=== PATIENT | female | born 1985 | race Caucasian/White ===

== ENCOUNTER 2018-02-20 11:36 | Emergency (ER) | payer OTHER ==
[~2018-02-20] VITALS: Ht 167.6 cm; Wt 99.8 kg
[2018-02-20] MEDS ORDERED: CLARINEX5 MG PO (11:46)
[2018-02-20] MEDS ORDERED: TRAZODONE HCL50 MG PO (11:47)
[2018-02-20] MEDS ORDERED: WELLBUTRIN XL150 MG PO (11:47)
[2018-02-20] MEDS ORDERED: PAXIL20 MG PO (11:47)
[2018-02-20] MEDS ORDERED: OMEPRAZOLE20 M1 PO (11:47)
[2018-02-20] MEDS ORDERED: HYDROXYZINE PA100 MG PO (11:48)
[2018-02-20] MEDS ORDERED: MINIPRESS1 MG PO (11:48)
[2018-02-20] MEDS ORDERED: PROAIR HFA8.5 GM INH (12:22)
[2018-04-25] MEDS ORDERED: CIPRO500 MG PO (11:48)
[2018-04-25] MEDS ORDERED: IBUPROFEN600 MG PO (11:48)
== END 2018-02-20 12:34 | disposition home or self-care (01) ==
LOC: ED 11:36
DX: J06.9 Acute upper respiratory infection, unspecified (principal); J45.909 Unspecified asthma, uncomplicated; K21.9 Gastro-esophageal reflux disease without esophagitis; F32.9 Major depressive disorder, single episode, unspecified; F41.9 Anxiety disorder, unspecified; F17.200 Nicotine dependence, unspecified, uncomplicated; Z88.0 Allergy status to penicillin; Z88.8 Allergy status to other drugs, medicaments and biological substances; Z88.1 Allergy status to other antibiotic agents; Z79.899 Other long term (current) drug therapy
CPT/HCPCS: 99283

== ENCOUNTER 2018-03-20 14:02 | Emergency (ER) | payer OTHER ==
[~2018-03-20] VITALS: Ht 167.6 cm; Wt 99.8 kg
[~2018-03-20 14:02] MED LIST: CLARINEX5 MG PO; HYDROXYZINE PA100 MG PO; MINIPRESS1 MG PO; OMEPRAZOLE20 M1 PO; PAXIL20 MG PO; PROAIR HFA8.5 GM INH; TRAZODONE HCL50 MG PO; WELLBUTRIN XL150 MG PO
[2018-03-20] MEDS ORDERED: FIORINAL 50-321 EACH PO (14:54)
[2018-03-20] MEDS ORDERED: ZOFRAN ODT4 MG PO (14:54)
[2018-04-25] MEDS ORDERED: CIPRO500 MG PO (11:48)
[2018-04-25] MEDS ORDERED: IBUPROFEN600 MG PO (11:48)
== END 2018-03-20 15:44 | disposition home or self-care (01) ==
LOC: ED 14:02
DX: G43.909 Migraine, unspecified, not intractable, without status migrainosus (principal); K21.9 Gastro-esophageal reflux disease without esophagitis; F17.200 Nicotine dependence, unspecified, uncomplicated; Z88.0 Allergy status to penicillin; Z88.8 Allergy status to other drugs, medicaments and biological substances; Z88.1 Allergy status to other antibiotic agents; Z79.899 Other long term (current) drug therapy
CPT/HCPCS: 99283

== ENCOUNTER 2019-03-03 11:10 | Emergency (ER) | payer OTHER ==
[~2019-03-03] VITALS: Ht 167.6 cm; Wt 99.8 kg
[~2019-03-03 11:10] MED LIST changes: +CIPRO500 MG PO; +FIORINAL 50-321 EACH PO; +IBUPROFEN600 MG PO; +ZOFRAN ODT4 MG PO
--- OUTSIDE RECORDS SUMMARY | 2019-03-03 11:12 | XMS ---
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 Primary Care [facility] PHONE: [phone] Guidelines Source: Susana Huntley Guidelines Date: 07/20/2018 Care Coordination: Currently engaged in mental health services in [place] [phone] E.D. VISIT COUNT (12 MO.) [address] [facility] TOTAL 4 NOTE: Visits indicate total known visits. ED/UCC VISIT TRACKING (12 MO.) 03/03/2019 11:10 [facility] [place] TYPE: Emergency COMPLAINT: - CHEST PAIN/SOB 08/28/2018 18:03 [facility] [place] TYPE: Emergency COMPLAINT: - BITE/BOIL ON L SIDE/RIBS DIAGNOSES: - Encounter for other general examination 04/25/2018 10:22 [facility] [place] TYPE: Emergency COMPLAINT: - LOW BACK PAIN,NON INJURY DIAGNOSES: - Allergy status to other drugs, medicaments and biological substances status - Urinary tract infection, site not specified - Allergy status to other antibiotic agents status - Allergy status to penicillin - Low back pain - 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 - Personal history of nicotine dependence 03/20/2018 14:03 [facility] [place] TYPE: Emergency COMPLAINT: - HEAD PAIN/NO INJURY DIAGNOSES: - Allergy status to penicillin - Nicotine dependence, unspecified, uncomplicated - Gastro-esophageal reflux disease without esophagitis - Allergy status to other antibiotic agents status - Allergy status to other drugs, medicaments and biological substances status - Other correction (current) drug therapy - Migraine, unspecified, not intractable, without status migrainosus - Headache INPATIENT VISIT TRACKING (12 MO.) No inpatient visits to display in this time frame [email or web address]
[2019-03-03] MEDS ORDERED: G TUSSIN AC LI473 ML PO (13:10)
--- NOTE | 2019-03-04 08:07 | EKG ---
[facility] [address] [place], [place] [address] Signed Sinus tachycardia Otherwise normal ECG No previous ECGs available Confirmed by SOLITARIO ALLEN MD ([id number]) on 03/04/2019 8:07:12 AM Electronically Signed By: SOLITARIO ALLEN MD 03/04/19 0807 PATIENT NAME: SYLVIE RAMIREZ Electrocardiogram DATE OF : 89 PHYSICIAN: SOLITARIO ALLEN MD REPORT #: [id number] REPORT IS CONFIDENTIAL AND NOT TO BE RELEASED WITHOUT AUTHORIZATION
== END 2019-03-03 13:26 | disposition home or self-care (01) ==
LOC: ED 11:10
DX: J06.9 Acute upper respiratory infection, unspecified (principal); R07.89 Other chest pain; J45.909 Unspecified asthma, uncomplicated; F17.200 Nicotine dependence, unspecified, uncomplicated; K21.9 Gastro-esophageal reflux disease without esophagitis; F41.9 Anxiety disorder, unspecified; F32.9 Major depressive disorder, single episode, unspecified; Z90.49 Acquired absence of other specified parts of digestive tract; Z88.0 Allergy status to penicillin; Z88.8 Allergy status to other drugs, medicaments and biological substances; Z88.1 Allergy status to other antibiotic agents; Z79.899 Other long term (current) drug therapy
CPT/HCPCS: 71045; 80053; 84484; 85025; 85379; 93005; 93010; 99285-25

== ENCOUNTER 2020-08-27 08:41 | Emergency (ER) | payer OTHER ==
[~2020-08-27] VITALS: Ht 167.6 cm; Wt 136.1 kg
--- OUTSIDE RECORDS SUMMARY | ~2020-08-27 | XMS | Encounter Summary ---
Demographics + + + | Address | [address] | | | [place] [address] | + + + | Home Phone | | + + + | Preferred Language | Unknown | + + + | Marital Status | Single | + + + | Faith Affiliation | CAT | + + + | Race | White | + + + | Ethnic Group | Not or | + + + Author + + + | Author | [facility] | + + + | Organization | [facility] | + + + | Address | Unknown | + + + | Phone | Unavailable | + + + Support + + +---------+ + | Name | Relationship | Address | Phone | + + +---------+ + | Otilia & Edgar Ramirez | ECON | Unknown | | + + +---------+ + Care Team Providers + +------+ + | Care Industrial Relations Specialist Name | Role | Phone | + +------+ + PCP | Unavailable | + +------+ + Encounter Details +--------+ + + + + | Date | Type | Department | Care Team | Description | +--------+ + + + + | 11/11/ | ED Progress | [facility] | Report, Emergency | ED Progress Note | | 2006 | | MEDICINE | Services | | | | Note-Transc | | | | | | ribed | | | | +--------+ + + + + Social History + +-------+ +--------+------+ | Tobacco Use | Types | Packs/Day | Years | Date | | | | | Used | | + +-------+ +--------+------+ | Never Assessed | | | | | + +-------+ +--------+------+ + + + | Sex Assigned at | Date Recorded | | | | + + + | Not on file | | + + + documented as of this encounter ED Notes Interface, Sod[place] In - 11/24/2005 2:23 AM PST [id number] JAMES MERCER Date of Service: 11/11/2005 This is a 21-year-old female who has had a 3-day history of right-sided pelvic pain. She has had no vaginal pain. She denies any discharge. She denies any urinary symptoms, denies any back pain or abdominal pain. Also denies any nausea, vomiting or diarrhea. She denies fever. She has had normal appetite. Her last menstrual period was October 27, 2005. She had had previous biopsies showing HPV genital warts. She has had a previous and miscarriage. Review of Systems: All other systems reviewed and found to be negative except as described above. Past Medical History: Significant for bipolar disorder. Medications: Celexa. Allergies: She has no known drug allergies. Social History: She denies tobacco, alcohol, or drugs. Family History: Noncontributory. Physical Examination: Vital Signs: Her temperature was 36.4, pulse 86, blood pressure is 136/70, respirations 20, pulse oximetry 100% on room air. General: This is a nontoxic female resting on the exam table. HEENT: Her head is nontraumatic. Her pupils are equal, round, and reactive to light and accommodation bilaterally. Her oropharynx is clear. Neck: Supple. Heart: Regular rate and rhythm without gallop. Lungs: Clear to auscultation. No wheezes, crackles, or rhonchi. Abdomen: Soft and nontender without rebound or guarding. Pelvic: She has normal-appearing external genitalia. Normal-appearing vaginal vault. Her cervix appears normal. GC and Chlamydia cultures were obtained. She has no cervical motion tenderness, no uterine tenderness but there is just a right adnexal tenderness. Extremities: Warm and well perfused without edema. Neurologic: She is awake, alert, and oriented x3. Answers questions appropriately. She moves all extremities equally. Exam is otherwise nonfocal. ED Course: The patient arrived by private transportation. She was triaged to the Acute Side of the Emergency Department. Nurses' notes and vital signs were reviewed. She was cared for by myself and Dr. Renetta Valdez, who was present for all aspects of care.of this female. I felt that her etiology is most likely secondary to pelvic pathology. Urine test was normal. She had a UA which showed no evidence of infection or bleeding. GC and Chlamydia cultures were sent and are pending. She had a white blood cell count that was 12.0 with a normal differential. Her hematocrit was 37, and platelets were 354. She had normal basic metabolic panel. We did a pelvic ultrasound which showed a 4-cm right-sided ovarian cyst. There was no evidence of torsion. Otherwise, a normal study. I felt that the cyst in her ultrasound was likely the etiology of her pain. There was no other abnormalities seen. She had an otherwise reassuring exam. Normal vital signs and normal laboratory data. I felt comfortable on discharging her home. She understood the warning signs when she is to return immediately and she was discharged home. Clinical Impression: Ovarian cyst. Plan: Discharge home. I recommend ibuprofen 600 mg t.i.d. She was given Vicodin 16 tablets. She will follow up with her PCP in 3 to 5 days. Peter Lopez M.D. Renetta Valdez M.D. [place] / [id number] / [id number] / [id number] / Electronically signed by Renetta Valdez 11-23-2005 01:46:27 PM documented i n this encounter Plan of Treatment Not on filedocumented as of this encounter Visit Diagnoses Not on filedocumented in this encounter"
--- OUTSIDE RECORDS SUMMARY | ~2020-08-27 | XMS | Encounter Summary ---
Demographics + + + | Address | [address] | | | [place] [address] | + + + | Home Phone | | + + + | Preferred Language | Unknown | + + + | Marital Status | Single | + + + | Hoahaoism Affiliation | CAT | + + + | Race | White | + + + | Ethnic Group | Not or | + + + Author + + + | Author | [facility] | + + + | Organization | [facility] | + + + | Address | Unknown | + + + | Phone | Unavailable | + + + Support + + +---------+ + | Name | Relationship | Address | Phone | + + +---------+ + | Otilia & Edgar Ramirez | ECON | Unknown | | + + +---------+ + Care Team Providers + +------+ + | Care Certified Court/Medical Interpreter Name | Role | Phone | + +------+ + | Dacia Regalado | PCP | Unavailable | + +------+ + Encounter Details +--------+ + + + + | Date | Type | Department | Care Team | Description | +--------+ + + + + | 11/11/ | Hospital | Registration [id number] | Renetta Patel, | | | 2005 | Activity | [address] | [address] | | | | | Sanjay Mailcode: [id number] | [address] | | | | | [place], [place] | [place] [address] | | | | | [id number] | | | | | | [phone] | | | +--------+ + + + [...] + + documented as of this encounter Plan of Treatment + +---------+--------+ + + | Name | Type | Priori | Associated Diagnoses | Date/Time | | | | ty | | | + +---------+--------+ + + | US PELVIS COMPLETE | Imaging | Urgent | | 11/11/2005 9:46 PM | | | | | | PST | + +---------+--------+ + + documented as of this encounter Procedures + +--------+ + + + | Procedure Name | Priori | Date/Time | Associated Diagnosis | Comments | | | ty | | | | + +--------+ + + + | GC/CHLAMYDIA PROBE, | Urgent | 11/12/2005 | | Results for this | | DNA | | 12:27 AM | | procedure are in the | | | | PST | | results section. | + +--------+ + + + | US PELVIS AND | Urgent | 11/11/2005 | | Results for this | | TRANSVAGINAL | | 10:08 PM | | procedure are in the | | | | PST | | results section. | + +--------+ + + + | DIFFERENTIAL | Urgent | 11/11/2005 | | Results for this | | | | 9:53 PM | | procedure are in the | | | | PST | | results section. | + +--------+ + + + | CBC, WITH | Urgent | 11/11/2005 | | Results for this | | DIFFERENTIAL | | 9:53 PM | | procedure are in the | | | | PST | | results section. | + +--------+ + + + | BASIC METABOLIC SET | Urgent | 11/11/2005 | | Results for this | | (NA, K, CL, TCO2, | | 9:53 PM | | procedure are in the | | BUN, CR, GLU, CA) | | PST | | results section. | + +--------+ + + + documented in this encounter Results DNA PROBE, GC/CHLAM (11/12/2005 12:27 AM PST) + + + + + + | Component | Value | Ref Range | Performed | Pathologist | | | | | At | Signature | + + + + + + | CHLAMYDIA | Negative | | | | | PROBE | | | | | + + + + + + | GONOCOCCUS | Negative | | | | | PROBE | | | | | + + + + + + | SOURCE BODY | Genital | | | | | SITE | | | | | + + + + + + + + | Specimen | + + | | + + + + + | Narrative | Performed At | + + + | The methodology is Nucleic Acid Amplification Testing (NAAT) | | | using the [employer] Combo 2 assay, a non-culture assay. | | | Test performed by [facility]. | | + + + + + + + + | Performing | Address | City/State/Zipcode | Phone Number | | Organization | | | | + + + + + | [facility] | [address] | [place] [address] | | | LAB-MICRO | | | | + + + + + US PELVIS AND TRANSVAGINAL (11/11/2005 10:08 PM PST) + + + + + + | Component | Value | Ref Range | Performed | Pathologist | | | | | At | Signature | + + + + + + | US PELVIS | Radiologist 1: MICHAEL, | | | | | AND | Jackie GOREPelvis | | | | | TRANSVAGINA | Ultrasound Clinical | | | | | L | Indication:Right pelvic | | | | | | pain. | | | | | | FINDINGS:Transabdominal | | | | | | and transvaginal | | | | | | ultrasound of the pelvis | | | | | | isperformed. | | | | | | Transvaginal exam is | | | | | | performed in order to | | | | | | bettervisualize the | | | | | | uterus and adnexal | | | | | | structures. The uterus | | | | | | is anteriorly positioned | | | | | | and measures 7.9 x 3.2 | | | | | | x 5.2cm. The | | | | | | endometrial stripe | | | | | | measures 7 mm. No | | | | | | focal endometrialor | | | | | | myometrial abnormalities | | | | | | are seen. There is no | | | | | | pelvic fluid. The right | | | | | | ovary measures 6.3 x | | | | | | 4.6 x 3.2 cm and | | | | | | contains athin-walled, | | | | | | anechoic 3.8 x 3.1 x 4.4 | | | | | | cm cyst. The left | | | | | | ovarycannot be | | | | | | visualized. Ovarian | | | | | | Doppler: The right ovary | | | | | | demonstrates normal | | | | | | lowresistance arterial | | | | | | waveform. Again, the | | | | | | left ovary is | | | | | | notvisualized. | | | | | | IMPRESSION:1. 4.4 cm | | | | | | anechoic, thin-walled | | | | | | right ovarian cyst. No | | | | | | rightovarian torsion. | | | | | | Given the size of the | | | | | | cyst, follow up | | | | | | ultrasoundis recommended | | | | | | in 6 to 8 weeks. If | | | | | | the cyst is unchanged in | | | | | | sizeor larger, than | | | | | | excision should be | | | | | | considered, given the | | | | | | risk oftorsion. 2. | | | | | | Nonvisualized left | | | | | | ovary. Results were | | | | | | discussed with | | | | | | market. Addendum # 1 by | | | | | | Marycruz Baez M.D. on | | | | | | 15-Nov-2005 16:28 There | | | | | | is no change to this | | | | | | report. The addendum | | | | | | is toadministratively | | | | | | link the associated | | | | | | examinations to one | | | | | | report. | | | | + + + + + + + + | Specimen | + + | | + + + +---------+ + + | Performing | Address | City/State/Zipcode | Phone Number | | Organization | | | | + +---------+ + + | [facility] DEPARTMENT OF | | | | | RADIOLOGY | | | | + +---------+ + + BASIC METABOLIC SET (11/11/2005 9:53 PM PST) + +---------+ + + + | Component | Value | Ref Range | Performed | Pathologist | | | | | At | Signature | + +---------+ + + + | GLUCOSE, | 101 | 65 - 110 mg/dL | [facility] | | | PLASMA | | | DEPARTMENT | | | (LAB) | | | OF | | | | | | PATHOLOGY | | + +---------+ + + + | BUN, PLASMA | 3 (L) | 6 - 20 mg/dL | [facility] | | | (LAB) | | | DEPARTMENT | | | | | | OF | | | | | | PATHOLOGY | | + +---------+ + + + | CREATININE | 0.7 | 0.6 - 1.1 mg/dL | [facility] | | | PLASMA | | | DEPARTMENT | | | (LAB) | | | OF | | | | | | PATHOLOGY | | + +---------+ + + + | SODIUM, | 141 | 136 - 145 | [facility] | | | PLASMA | | mmol/L | DEPARTMENT | | | (LAB) | | | OF | | | | | | PATHOLOGY | | + +---------+ + + + | POTASSIUM, | 3.8 | 3.5 - 5.1 | [facility] | | | PLASMA | | mmol/L | DEPARTMENT | | | (LAB) | | | OF | | | | | | PATHOLOGY | | + +---------+ + + + | CHLORIDE, | 108 (H) | 98 - 107 mmol/L | [facility] | | | PLASMA | | | DEPARTMENT | | | (LAB) | | | OF | | | | | | PATHOLOGY | | + +---------+ + + + | TOTAL CO2, | 25 | 23 - 29 mmol/L | [facility] | | | PLASMA | | | DEPARTMENT | | | (LAB) | | | OF | | | | | | PATHOLOGY | | + +---------+ + + + | CALCIUM, | 9.2 | 8.5 - 10.5 | [facility] | | | PLASMA | | mg/dL | DEPARTMENT | | | (LAB) | | | OF | | | | | | PATHOLOGY | | + +---------+ + + + + + | Specimen | + + | | + + + + + + + | Performing | Address | City/State/Zipcode | Phone Number | | Organization | | | | + + + + + | [facility] DEPARTMENT OF | [address] | [place] [address] | | | PATHOLOGY | [address] | | | + + + + + | [facility] DEPARTMENT OF | [address] | [place] [address] | | | PATHOLOGY | [address] | | | + + + + + DIFFERENTIAL (11/11/2005 9:53 PM PST) + +---------+ + + + | Component | Value | Ref Range | Performed | Pathologist | | | | | At | Signature | + +---------+ + + + | NEUTROPHIL | 64 | 50 - 70 % | [facility] | | | % | | | DEPARTMENT | | | | | | OF | | | | | | PATHOLOGY | | + +---------+ + + + | LYMPHOCYTE | 26 | 18 - 42 % | [facility] | | | % | | | DEPARTMENT | | | | | | OF | | | | | | PATHOLOGY | | + +---------+ + + + | MONOCYTE % | 7 | 2 - 8 % | [facility] | | | | | | DEPARTMENT | | | | | | OF | | | | | | PATHOLOGY | | + +---------+ + + + | EOS % | 3 | 1 - 3 % | [facility] | | | | | | DEPARTMENT | | | | | | OF | | | | | | PATHOLOGY | | + +---------+ + + + | BASO % | 0 | <3 % | [facility] | | | | | | DEPARTMENT | | | | | | OF | | | | | | PATHOLOGY | | + +---------+ + + + | NEUTROPHIL | 7.7 | 1.8 - 7.7 K/cu | [facility] | | | # | | mm | DEPARTMENT | | | | | | OF | | | | | | PATHOLOGY | | + +---------+ + + + | LYMPHOCYTE | 3.1 | 1.0 - 4.8 K/cu | [facility] | | | # | | mm | DEPARTMENT | | | | | | OF | | | | | | PATHOLOGY | | + +---------+ + + + | MONOCYTE # | 0.8 (H) | 0.1 - 0.6 K/cu | [facility] | | | | | mm | DEPARTMENT | | | | | | OF | | | | | | PATHOLOGY | | + +---------+ + + + | EOS # | 0.4 | <0.6 K/cu mm | [facility] | | | | | | DEPARTMENT | | | | | | OF | | | | | | PATHOLOGY | | + +---------+ + + + | BASO # | 0.0 | <0.3 | [facility] | | | | | | DEPARTMENT | | | | | | OF | | | | | | PATHOLOGY | | + +---------+ + + + + + | Specimen | + + | | + + + + + + + | Performing | Address | City/State/Zipcode | Phone Number | | Organization | | | | + + + + + | [facility] DEPARTMENT OF | [address] | [place] [address] | | | PATHOLOGY | [address] | | | + + + + + | [facility] DEPARTMENT OF | [address] | [place] [address] | | | PATHOLOGY | [address] | | | + + + + + CBC, WITH DIFFERENTIAL (11/11/2005 9:53 PM PST) + + + + + + | Component | Value | Ref Range | Performed | Pathologist | | | | | At | Signature | + + + + + + | WHITE CELL | 12.0 (H) | 4.4 - 11.0 K/cu | [facility] | | | COUNT | | mm | DEPARTMENT | | | | | | OF | | | | | | PATHOLOGY | | + + + + + + | RED CELL | 4.36 | 4.00 - 5.20 | [facility] | | | COUNT | | M/cu mm | DEPARTMENT | | | | | | OF | | | | | | PATHOLOGY | | + + + + + + | HEMOGLOBIN | 13.0 | 12.0 - 16.0 | [facility] | | | | | g/dL | DEPARTMENT | | | | | | OF | | | | | | PATHOLOGY | | + + + + + + | HEMATOCRIT | 37.3 | 36.0 - 46.0 % | [facility] | | | | | | DEPARTMENT | | | | | | OF | | | | | | PATHOLOGY | | + + + + + + | MCV | 85.6 | 80.0 - 96.0 fL | [facility] | | | | | | DEPARTMENT | | | | | | OF | | | | | | PATHOLOGY | | + + + + + + | MCHC | 34.7 | 33.4 - 35.5 | [facility] | | | | | g/dL | DEPARTMENT | | | | | | OF | | | | | | PATHOLOGY | | + + + + + + | RDW | 12.2 | 11.5 - 15.0 % | [facility] | | | | | | DEPARTMENT | | | | | | OF | | | | | | PATHOLOGY | | + + + + + + | PLATELET | 360 | 150 - 400 K/cu | [facility] | | | COUNT | | mm | DEPARTMENT | | | | | | OF | | | | | | PATHOLOGY | | + + + + + + + + | Specimen | + + | | + + + + + + + | Performing | Address | City/State/Zipcode | Phone Number | | Organization | | | | + + + + + | [facility] | [address] | [place] [address] | | | PATHOLOGY | [address] | | | + + + + + | [facility] | [address] | [place] [address] | | | PATHOLOGY | [address] | | | + + + + + documented in this encounter Visit Diagnoses Not on filedocumented in this encounter"
--- OUTSIDE RECORDS SUMMARY | ~2020-08-27 | XMS | Encounter Summary ---
Demographics + + + | Address | [address] | | | [place] [address] | + + + | Home Phone | | + + + | Preferred Language | Unknown | + + + | Marital Status | Single | + + + | Christianity Affiliation | CAT | + + + | Race | White | + + + | Ethnic Group | Not or | + + + Author + + + | Author | [facility] | + + + | Organization | [facility] | + + + | Address | Unknown | + + + | Phone | Unavailable | + + + Support + + +---------+ + | Name | Relationship | Address | Phone | + + +---------+ + | Otilia & Edgar Ramirez | ECON | Unknown | | + + +---------+ + Care Team Providers + +------+ + | Care Blowing Engineer Name | Role | Phone | + +------+ + | Dacia Regalado | PCP | Unavailable | + +------+ + Encounter Details +--------+ + + + + | Date | Type | Department | Care Team | Description | +--------+ + + + + | 11/13/ | Hospital | Registration 3[address] | Mary Solorio, | | | 2005 | Activity | SANJAY Conti | MD Marcellus Martinez | | | | | Rd Mailcode: RPB07 | [facility] and | | | | | [place], [place] | Counseling [address] | | | | | [address] | [address], | | | | | [phone] | [place] [address] | | | | | | [phone] | | | | | | | | +--------+ + + [...] as of this encounter Plan of Treatment Not on filedocumented as of this encounter Procedures + +--------+ + + + | Procedure Name | Priori | Date/Time | Associated Diagnosis | Comments | | | ty | | | | + +--------+ + + + | CT PELVIS W IV | Urgent | 11/14/2005 | | Results for this | | CONTRAST | | 3:38 AM | | procedure are in the | | | | PST | | results section. | + +--------+ + + + | CT ABDOMEN W IV | Urgent | 11/14/2005 | | Results for this | | CONTRAST | | 3:38 AM | | procedure are in the | | | | PST | | results section. | + +--------+ + + + | COMPLETE METABOLIC | Routin | 11/13/2005 | | Results for this | | SET | e | 11:28 PM | | procedure are in the | | (NA,K,CL,CO2,BUN,CRE | | PST | | results section. | | AT,GLUC,CA,AST,ALT,B | | | | | | [place] TOTAL,ALK | | | | | | PHOS,ALB,PROT TOTAL) | | | | | + +--------+ + + + | CBC ONLY | Routin | 11/13/2005 | | Results for this | | | e | 11:28 PM | | procedure are in the | | | | PST | | results section. | + +--------+ + + + documented in this encounter Results CT PELVIS W CONTRAST (11/14/2005 3:38 AM PST) + + + + + + | Component | Value | Ref Range | Performed | Pathologist | | | | | At | Signature | + + + + + + | CT PELVIS W | Radiologist 1: VIJAY, | | | | | CONTRAST | MARNI Palacios M.D.EXAM: | | | | | | CT Scan of the | | | | | | Abdomen, and Pelvis | | | | | | COMPARISON: None. | | | | | | PROCEDURE: Following | | | | | | the uneventful | | | | | | administration of | | | | | | enteric andVisipaque 120 | | | | | | cc intravenous | | | | | | contrast, contiguous | | | | | | images areobtained from | | | | | | the lung bases through | | | | | | the pelvis. | | | | | | Reconstructionis done | | | | | | with an axial thickness | | | | | | of 5 mm and spacing of 5 | | | | | | mm.Additional axial | | | | | | reconstructions with a | | | | | | thickness of 3 mm | | | | | | andspacing of 1.5 mm are | | | | | | created. ABDOMEN | | | | | | FINDINGS (contrast | | | | | | enhanced): The | | | | | | visualized lung basesare | | | | | | clear. The liver, | | | | | | spleen, gallbladder, | | | | | | adrenal glands,kidneys, | | | | | | and pancreas are | | | | | | unremarkable. There is | | | | | | no significantfree air | | | | | | or free fluid. | | | | | | Abdominal aorta is | | | | | | normal in course | | | | | | andcaliber. PELVIS | | | | | | FINDINGS (contrast | | | | | | enhanced): Right | | | | | | ovarian cyst measures3.2 | | | | | | x 5.2 cm, but is better | | | | | | characterized on the | | | | | | recentultrasound. | | | | | | Appendix is not | | | | | | identified despite thin | | | | | | cuts andcoronal imaging. | | | | | | There is no pericecal | | | | | | inflammation or | | | | | | freefluid. A few | | | | | | non-enlarged mesenteric | | | | | | lymph nodes are presents | | | | | | inthis region which are | | | | | | probably not | | | | | | significant. Bladder | | | | | | ismoderately distended. | | | | | | Osseous structures are | | | | | | intact. IMPRESSION: 1. | | | | | | Normal appendix is not | | | | | | visualized, however | | | | | | there are nosecondary | | | | | | signs of appendicitis. | | | | | | 2. Right ovarian cyst. | | | | | | Better characterized | | | | | | on previousultrasound of | | | | | | the pelvis. This is | | | | | | concordant with the | | | | | | initial interpretation | | | | | | given by to the | | | | | | emergency room. | | | | + + + + + + + + | Specimen | + + | | + + + +---------+ + + | Performing | Address | City/State/Zipcode | Phone Number | | Organization | | | | + +---------+ + + | [facility] DEPARTMENT OF | | | | | RADIOLOGY | | | | + +---------+ + + CT ABDOMEN W CONTRAST (11/14/2005 3:38 AM PST) + + + + + + | Component | Value | Ref Range | Performed | Pathologist | | | | | At | Signature | + + + + + + | CT ABDOMEN | Radiologist 1: VIJAY, | | | | | W CONTRAST | MARNI Palacios M.D.EXAM: | | | | | | CT Scan of the | | | | | | Abdomen, and Pelvis | | | | | | COMPARISON: None. | | | | | | PROCEDURE: Following | | | | | | the uneventful | | | | | | administration of | | | | | | enteric andVisipaque 120 | | | | | | cc intravenous | | | | | | contrast, contiguous | | | | | | images areobtained from | | | | | | the lung bases through | | | | | | the pelvis. | | | | | | Reconstructionis done | | | | | | with an axial thickness | | | | | | of 5 mm and spacing of 5 | | | | | | mm.Additional axial | | | | | | reconstructions with a | | | | | | thickness of 3 mm | | | | | | andspacing of 1.5 mm are | | | | | | created. ABDOMEN | | | | | | FINDINGS (contrast | | | | | | enhanced): The | | | | | | visualized lung basesare | | | | | | clear. The liver, | | | | | | spleen, gallbladder, | | | | | | adrenal glands,kidneys, | | | | | | and pancreas are | | | | | | unremarkable. There is | | | | | | no significantfree air | | | | | | or free fluid. | | | | | | Abdominal aorta is | | | | | | normal in course | | | | | | andcaliber. PELVIS | | | | | | FINDINGS (contrast | | | | | | enhanced): Right | | | | | | ovarian cyst measures3.2 | | | | | | x 5.2 cm, but is better | | | | | | characterized on the | | | | | | recentultrasound. | | | | | | Appendix is not | | | | | | identified despite thin | | | | | | cuts andcoronal imaging. | | | | | | There is no pericecal | | | | | | inflammation or | | | | | | freefluid. A few | | | | | | non-enlarged mesenteric | | | | | | lymph nodes are presents | | | | | | inthis region which are | | | | | | probably not | | | | | | significant. Bladder | | | | | | ismoderately distended. | | | | | | Osseous structures are | | | | | | intact. IMPRESSION: 1. | | | | | | Normal appendix is not | | | | | | visualized, however | | | | | | there are nosecondary | | | | | | signs of appendicitis. | | | | | | 2. Right ovarian cyst. | | | | | | Better characterized | | | | | | on previousultrasound of | | | | | | the pelvis. This is | | | | | | concordant with the | | | | | | initial interpretation | | | | | | given by to the | | | | | | emergency room. | | | | + + + + + + + + | Specimen | + + | | + + + +---------+ + + | Performing | Address | City/State/Zipcode | Phone Number | | Organization | | | | + +---------+ + + | [facility] DEPARTMENT OF | | | | | RADIOLOGY | | | | + +---------+ + + CBC ONLY WITH PLATELET (11/13/2005 11:28 PM PST) + + + + + + | Component | Value | Ref Range | Performed | Pathologist | | | | | At | Signature | + + + + + + | WHITE CELL | 9.0 | 4.4 - 11.0 K/cu | [facility] | | | COUNT | | mm | DEPARTMENT | | | | | | OF | | | | | | PATHOLOGY | | + + + + + + | RED CELL | 4.03 | 4.00 - 5.20 | [facility] | | | COUNT | | M/cu mm | DEPARTMENT | | | | | | OF | | | | | | PATHOLOGY | | + + + + + + | HEMOGLOBIN | 12.0 | 12.0 - 16.0 | [facility] | | | | | g/dL | DEPARTMENT | | | | | | OF | | | | | | PATHOLOGY | | + + + + + + | HEMATOCRIT | 34.4 (L) | 36.0 - 46.0 % | [facility] | | | | | | DEPARTMENT | | | | | | OF | | | | | | PATHOLOGY | | + + + + + + | MCV | 85.2 | 80.0 - 96.0 fL | [facility] | | | | | | DEPARTMENT | | | | | | OF | | | | | | PATHOLOGY | | + + + + + + | MCHC | 35.0 | 33.4 - 35.5 | [facility] | | | | | g/dL | DEPARTMENT | | | | | | OF | | | | | | PATHOLOGY | | + + + + + + | RDW | 12.0 | 11.5 - 15.0 % | [facility] | | | | | | DEPARTMENT | | | | | | OF | | | | | | PATHOLOGY | | + + + + + + | PLATELET | 330 | 150 - 400 K/cu | [facility] [...] | + + + + + | [facility] DEPARTMENT OF | [address] | [place] [address] | | | PATHOLOGY | [address] | | | + + + + + | [facility] DEPARTMENT OF | [address] | [place] [address] | | | PATHOLOGY | [address] | | | + + + + + COMP METABOLIC SET (11/13/2005 11:28 PM PST) + +---------+ + + + | Component | Value | Ref Range | Performed | Pathologist | | | | | At | Signature | + +---------+ + + + | GLUCOSE, | 93 | 65 - 110 mg/dL | [facility] | | | PLASMA | | | DEPARTMENT | | | (LAB) | | | OF | | | | | | PATHOLOGY | | + +---------+ + + + | BUN, PLASMA | 5 (L) | 6 - 20 mg/dL | [facility] | | | (LAB) | | | DEPARTMENT | | | | | | OF | | | | | | PATHOLOGY | | + +---------+ + + + | CREATININE | 0.6 | 0.6 - 1.1 mg/dL | [facility] | | | PLASMA | | | DEPARTMENT | | | (LAB) | | | OF | | | | | | PATHOLOGY | | + +---------+ + + + | TOTAL | 5.8 (L) | 6.1 - 7.9 g/dL | [facility] | | | PROTEIN, | | | DEPARTMENT | | | PLASMA | | | OF | | | (LAB) | | | PATHOLOGY | | + +---------+ + + + | ALBUMIN, | 3.1 (L) | 3.5 - 4.7 g/dL | [facility] | | | PLASMA | [...] | + +---------+ + + + | BILIRUBIN | 0.4 | 0.3 - 1.2 mg/dL | [facility] | | | TOTAL | | | DEPARTMENT | | | | | | OF | | | | | | PATHOLOGY | | + +---------+ + + + | ALK PHOS | 60 | 42 - 110 U/L | [facility] | | | | | | DEPARTMENT | | | | | | OF | | | | | | PATHOLOGY | | + +---------+ + + + | AST(SGOT) | 14 (L) | 15 - 41 U/L | [facility] | | | | | | DEPARTMENT | | | | | | OF | | | | | | PATHOLOGY | | + +---------+ + + + | SODIUM, | 138 | 136 - 145 | [facility] | | | PLASMA | | mmol/L | DEPARTMENT | | | (LAB) | | | OF | | | | | | PATHOLOGY | | + +---------+ + + + | POTASSIUM, | 3.7 | 3.5 - 5.1 | [facility] | | | PLASMA | | mmol/L | DEPARTMENT | | | (LAB) | | | OF | | | | | | PATHOLOGY | | + +---------+ + + + | CHLORIDE, | 104 | 98 - 107 mmol/L | [facility] [...] | + +---------+ + + + | ALT (SGPT) | 14 | 13 - 48 U/L | [facility] | | | | | [...] | + + + + + | [facility] DEPARTMENT OF | [address] | [place] [address] | | | PATHOLOGY | [address] | | | + + + + + | [facility] DEPARTMENT OF | [address] | [place] [address] | | | PATHOLOGY | [address] | | | + + + + + documented in this encounter Visit Diagnoses Not on filedocumented in this encounter"
--- OUTSIDE RECORDS SUMMARY | ~2020-08-27 | XMS | Clinical Summary ---
Demographics + + + | Address | [address] | | | [place] [address] | + + + | Home Phone | | + + + | Preferred Language | Unknown | + + + | Marital Status | Unknown | + + + | Taoism Affiliation | Unknown | + + + | Race | Unknown | + + + | Ethnic Group | Unknown | + + + Author + + + | Author | [facility] | | | and Abhi | + + + | Organization | [facility] | | | and [place] | + + + | Address | Unknown | + + + | Phone | Unavailable | + + + Care Team Providers + +------+ + | Care Lathe Mechanic Name | Role | Phone | + +------+ + PCP | Unavailable | + +------+ + Allergies Not on File Medications Not on file Active Problems Not on file Social History + +-------+ +--------+------+ | Tobacco [...] on file | | + + + Last Filed Vital Signs Not on file Plan of Treatment + + +-------+ + | Health Maintenance | Due Date | Last | Comments | | | | Done | | + + +-------+ + | Vaccine: | 08//200 | | | | Dtap/Tdap/Td (1 - | 6 | | | | Tdap) | | | | + + +-------+ + | Cervical Cancer | | | | | Screening (Pap) | 7 | | | + + +-------+ + | Vaccine: Influenza | | | | | (#1) | 0 | | | + + +-------+ + Results Not on filefrom Last 3 Months"
--- OUTSIDE RECORDS SUMMARY | ~2020-08-27 | XMS | Clinical Summary ---
Demographics + + + | Address | [address] | | | [place] [address] | + + + | Home Phone | | + + + | Preferred Language | Unknown | + + + | Marital Status | Single | + + + | Nondenominational Affiliation | CAT | + + + | Race | White | + + + | Ethnic Group | Not or | + + + Author + + + | Author | [facility] | + + + | Organization | [facility] | + + + | Address | Unknown | + + + | Phone | Unavailable | + + + Support + + +---------+ + | Name | Relationship | Address | Phone | + + +---------+ + | Otilia & Edgar Ramirez | ECON | Unknown | | + + +---------+ + Care Team Providers + +------+ + | Care Flitch Hanger Name | Role | Phone | + +------+ + PCP | Unavailable | + +------+ + Source Comments THAIS is fully live on both [facility] Amb[facility] and [facility] InPatient.[facility] Allergies + + + + + + | Active Allergy | Reactions | Severity | Noted | Comments | | | | | Date | | + + + + + + | Clarithromycin | | | 05/01/20 | | | | | | 07 | | + + + + + + Medications + + + +---------+------+------+-------+ | Medication | Sig | Dispensed | Refills | Star | End | Statu | | | | | | t | Date | s | | | | | | Date | | | + + + +---------+------+------+-------+ | LITHIUM CARBONATE | 675 mg bid | | 0 | | | Activ | | OR | | | | | | e | + + + +---------+------+------+-------+ | CELEXA OR | 30mg once a day | | 0 | | | Activ | | | | | | | | e | + + + +---------+------+------+-------+ | ORTHO-CYCLEN (28) | once a day | | 0 | | | Activ | | OR | | | | | | e | + + + +---------+------+------+-------+ | Lorazepam (ATIVAN) | 1 tab prn | | 0 | | | Activ | | 0.5 mg Oral Tablet | | | | | | e | + + + +---------+------+------+-------+ Active Problems + + + | Problem | Noted Date | + + + | High risk social situation | 04/19/2017 | + + + + + | Overview: Department of Human Services ([facility]) Child Welfare | | Alert received for this patient from [facility] Child | | Abuse Hotline. Reason for Alert: "has engaged in | | substance use/abuse that threatens the health of her | | ",Estimated Date of Delivery: UnknownSW needs to notify | | [facility] ([phone]) when baby is delivered. Steve Causey, Medical | | Social WorkerPager [phone] | | | | needs to notify [facility] ([phone]) when baby is delivered. | | | |Steve Causey, [employer]afer | |Pager [phone] | + + Social History + +-------+ +--------+------+ [...] + + + Last Filed Vital Signs + + + + + | Vital Sign | Reading | Time Taken | Comments | + + + + + | Blood Pressure | 142/75 | 05/01/2007 10:35 AM | | | | | PDT | | + + + + + | Pulse | 80 | 05/01/2007 10:35 AM | | | | | PDT | | + + + + + | Temperature | - | - | | + + + + + | Respiratory Rate | - | - | | + + + + + | Oxygen Saturation | - | - | | + + + + + | Inhaled Oxygen | - | - | | | Concentration | | | | + + + + + | Weight | 98 kg (216 lb) | 05/01/2007 10:35 AM | | | | | PDT | | + + + + + | Height | 165.1 cm (5' 5") | 05/01/2007 10:35 AM | | | | | PDT | | + + + + + | Body Mass Index | 35.94 | 05/01/2007 10:35 AM | | | | | PDT | | + + + + + Plan of Treatment + + +-------+ + | Health Maintenance | Due Date | Last | Comments | | | | Done | | + + +-------+ + | Influenza (Flu) | | | | | vaccination (#1) | 0 | | | + + +-------+ + | Pneumococcal | Aged Out | | No longer eligible based on patient's age | | vaccination | | | to complete this topic | + + +-------+ + Results Not on filefrom Last 3 Months Insurance + +--------+ +--------+ + +------+ | Payer | Benefi | Subscriber | Effect | Phone | Address | Type | | | t Plan | ID | [place] | | | | | | / | | Dates | | | | | | Group | | | | | | + +--------+ +--------+ + +------+ | [employer] | PACIFI | [id number] | Effect | [phone] | [address] | PPO | | | [place] | | [address] | [phone] | | | [address] | | for | | [place] | | | | | | all | | , [place] | | | | | | dates | | [address] | | + +--------+ +--------+ + +------+ + +--------+ +--------+ + + | Guarantor Name | Accoun | Relation to | Date | Phone | Billing Address | | | t Type | Patient | of | | | | | | | | | | + +--------+ +--------+ + + | JAMESSYLVIE | Person | Self | [birth year] | [address] | | | al/Fam | | 1985 | [phone] | [address] [place] | | | [place] | | | 1 (Home) | [address] | + +--------+ +--------+ + + Advance Directives + + + + + | Type | Date Recorded | Patient | Explanation | | | | Director Of Acquisitions | | + + + + + | Advance | | | | | Directives and | | | | | Living Will | | | | + + + + + | Power of | | | | | Ditch Inspector | | | | + + + + +
--- OUTSIDE RECORDS SUMMARY | ~2020-08-27 | XMS | Encounter Summary ---
Demographics + + + | Address | [address] | | | [place] [address] | + + + | Home Phone | | + + + | Preferred Language | Unknown | + + + | Marital Status | Single | + + + | Buddhist Affiliation | CAT | + + + | Race | White | + + + | Ethnic Group | Not or | + + + Author + + + | Author | [facility] | + + + | Organization | [facility] | + + + | Address | Unknown | + + + | Phone | Unavailable | + + + Support + + +---------+ + | Name | Relationship | Address | Phone | + + +---------+ + | Otilia & Edgar Ramirez | ECON | Unknown | | + + +---------+ + Care Team Providers + +------+ + | Care Pharmacovigilance Specialist Name | Role | Phone | + +------+ + PCP | Unavailable | + +------+ + Encounter Details +--------+ + + + + | Date | Type | Department | Care Team | Description | +--------+ + + + + | 11/11/ | Results | Emergency Medicine | [facility] | | | 2005 | Only | [address] | | | | | | [address] | | | | | | [place], [place] | | | | | | [address] | | | +--------+ + + + [...] + +--------+ + + + | US DOPPLER PELVIS | Routin | 11/11/2005 | | Results for this | | COMP | e | 10:08 PM | | procedure are in the | | | | PST | | results section. | + +--------+ + + + | US TRANSVAGINAL | Routin | 11/11/2005 | | Results for this | | | e | 10:08 PM | | procedure are in the | | | | PST | | results section. | + +--------+ + + + documented in this encounter Results US DOPPLER PELVIS COMP (11/11/2005 10:08 PM PST) + + + + + + | Component | Value | Ref Range | Performed | Pathologist | | | | | At | Signature | + + + + + + | US DOPPLER | Radiologist 1: MICHAEL, | | | | | PELVIS COMP | MARYCRUZ, M.D.Pelvis | | | | | | Ultrasound Clinical | | | | | | Indication:Right pelvic | | | | [...] with | | | | | | roseann. Addendum # 1 by | | | [...] | | + +---------+ + + | [facility]MENT OF | | | | | RADIOLOGY | | | | + +---------+ + + US TRANSVAGINAL (11/11/2005 10:08 PM PST) + + + + + + | Component | Value | Ref Range | Performed | Pathologist | | | | | At | Signature | + + + + + + | US | Radiologist 1: MICHAEL, | | | | | TRANSVAGINA | Jackie GOREPelvis | | | | | L | Ultrasound Clinical | | | | | | Indication:Right pelvic | | | | [...] | | + +---------+ + + | [facility] DEPARTMENT OF | | | | | RADIOLOGY | | | | + +---------+ + + documented in this encounter Visit Diagnoses Not on filedocumented in this encounter"
--- OUTSIDE RECORDS SUMMARY | ~2020-08-27 | XMS | Encounter Summary ---
Demographics + + + | Address | [address] | | | [place] [address] | + + + | Home Phone | | + + + | Preferred Language | Unknown | + + + | Marital Status | Single | + + + | Jehovah'S Witness Affiliation | CAT | + + + | Race | White | + + + | Ethnic Group | Not or | + + + Author + + + | Author | [facility] | + + + | Organization | [facility] | + + + | Address | Unknown | + + + | Phone | Unavailable | + + + Support + + +---------+ + | Name | Relationship | Address | Phone | + + +---------+ + | Otilia & Edgar Ramirez | ECON | Unknown | | + + +---------+ + Care Team Providers + +------+ + | Care Manager Floor Name | Role | Phone | + +------+ + PCP | Unavailable | + +------+ + Encounter Details +--------+ + + + + | Date | Type | Department | Care Team | Description | +--------+ + + + + | 11/11/ | ED Progress | [facility] | Addendum, Ed | ED Progress Note | | 2006 | | MEDICINE | Teaching | | | | Note-Transc | | [...] as of this encounter ED Notes Interface, Lithographic Camera Operator In - 11/24/2005 2:23 AM PST [id number] JAMES SYLVIE Date of Service: 11/11/2005 I saw and examined this patient with the resident. I discussed the plan and agree with the plan. Please see Dr. Peter Lopez's dictation for full details. Briefly, the patient presents for trauma complaint and abdominal pain. She was told that she had an ovarian cyst, but she did not have any imaging. This was done at an outside hospital. She states the pain in her right abdomen is increasing. She does not have any bleeding. On our exam, she had a normal-appearing pelvic and some right adnexal tenderness. Her abdomen was soft and nontender with no pain over McBurney's point. In the Emergency Department, we felt that this could be consistent with torsion versus cyst; therefore, we obtained a pelvic ultrasound which did show a right-sided ovarian cyst which I think is the etiology of the patient's pain. The patient will be discharged to home with Vicodin, ibuprofen, close follow, and close instructions to return if she should have fevers or worsening pain, and please see Dr. Lopez's dictation for full details. Renetta Valdez M.D. FOZIA / NEDRA [id number] / [id number] / [id number] / Electronically signed by Renetta Valdez 11-23-2005 01:46:32 PM documented i n this encounter Plan of Treatment Not on filedocumented as of this encounter Visit Diagnoses Not on filedocumented in this encounter"
--- OUTSIDE RECORDS SUMMARY | ~2020-08-27 | XMS | Encounter Summary ---
Demographics + + + | Address | [address] | | | [place] [address] | + + + | Home Phone | | + + + | Preferred Language | Unknown | + + + | Marital Status | Unknown | + + + | Quaker Affiliation | Unknown | + + + | Race | Unknown | + + + | Ethnic Group | Unknown | + + + Author + + + | Author | [facility] | | | and [place] | + + + | Organization | [facility] | | | and [place] | + + + | Address | Unknown | + + + | Phone | Unavailable | + + + Care Team Providers + +------+ + | Care Car Lubricator Name | Role | Phone | + +------+ + PCP | Unavailable | + +------+ + Encounter Details +--------+ + + + + | Date | Type | Department | Care Team | Description | +--------+ + + + + | 05/26/ | Hospital | [facility] | | | | 2006 | Encounter | MED [facility] | | | | | | CONV DEPT [address] | | | | | | [place], | | | | | | [place] [address] | | | | | | [phone] | | | +--------+ + + + [...]
--- OUTSIDE RECORDS SUMMARY | ~2020-08-27 | XMS | Encounter Summary ---
Demographics + + + | Address | [address] | | | [place] [address] | + + + | Home Phone | | + + + | Preferred Language | Unknown | + + + | Marital Status | Unknown | + + + | Hindu Affiliation | Unknown | + + + | Race | Unknown | + + + | Ethnic Group | Unknown | + + + Author + + + | Author | [facility] | | | and [place] | + + + | Organization | [facility] | | | and [place] | + + + | Address | Unknown | + + + | Phone | Unavailable | + + + Care Team Providers + +------+ + | Care Pump Installation And Servicer Name | Role | Phone | + +------+ + PCP | Unavailable | + +------+ + Encounter Details +--------+ + + + + | Date | Type | Department | Care Team | Description | +--------+ + + + + | 01/13/ | Emergency | [facility] | Bj Sharma | Abdominal Pain, | | 2007 | | [facility] | MD Mehul [address] | Unspecified Site | | | | EMERGENCY CENTER | [address] | | | | | [address] | [place] [address] | | | | | | [phone] | | | | | [address] | | | | | | [phone] | | | +--------+ + + + [...] filedocumented as of this encounter Visit Diagnoses + + | Diagnosis | + + | Abdominal pain, unspecified site | + + documented in this encounter"
--- OUTSIDE RECORDS SUMMARY | ~2020-08-27 | XMS | Encounter Summary ---
Demographics + + + | Address | [address] | | | [place] [address] | + + + | Home Phone | | + + + | Preferred Language | Unknown | + + + | Marital Status | Single | + + + | Zoroastrianism Affiliation | CAT | + + + [...] Team Providers + +------+ + | Care Solar Sales Estimator Name | Role | Phone | + +------+ + | Dacia Regalado | PCP | Unavailable | + +------+ + Encounter Details +--------+ + + + + | Date | Type | Department | Care Team | Description | +--------+ + + + + | 08/03/ | Hospital | Registration [address] | Nate Perez, | | | 2006 | Activity | [facility] [address] | [address] | | | | | Sanjay Mailcode: [id number] | [address] | | | | | [place], [place] | [place], [place] | | | | | [address] | [address] | | | | | [phone] | [phone] | | | | | | | [...] | + +--------+ + + + | SURGICAL PATHOLOGY | Routin | 08/03/2007 | | Results for this | | | e | | | procedure are in the | | | | | | results section. | + +--------+ + + + documented in this encounter Results SURGICAL PATHOLOGY (08/03/2007) + + + + + + | Component | Value | Ref Range | Performed | Pathologist | | | | | At | Signature | + + + + + + | SURGICAL | SOURCE OF SPECIMEN:A | | [facility] | | | PATHOLOGY | Base of nasopharyngeal | | DEPARTMENT | | | | papilloma Final | | OF | | | | Pathologic | | PATHOLOGY | | | | Diagnosis:Base of | | | | | | nasopharyngeal | | | | | | papilloma, biopsy: - | | | | | | Respiratory mucosa with | | | | | | squamous metaplasia and | | | | | | patchy | | | | | | chronicinflammation | | | | | | - Negative for | | | | | | dysplasia Case reviewed | | | | | | by:Desirae Hairston, | | | | | | M.D./Surgical Pathology | | | | | | FellowBryan Argueta, | | | | | | M.D./PathologistT: | | | | | | 7:tyler I have reviewed | | | | | | all diagnostic slides | | | | | | and have edited the | | | | | | gross and/ormicroscopic | | | | | | portion of this report | | | | | | as part of my pathologic | | | | | | assessment andfinal | | | | | | diagnosis. Clinical | | | | | | History:The patient is a | | | | | | 22-year-old female with | | | | | | throat papilloma. Per | | | | | | LCR web:Patient with | | | | | | history of removal of | | | | | | nasal papilloma times 2 | | | | | | from thenasopharyngeal | | | | | | side of the soft palate. | | | | | | Gross Description:One | | | | | | specimen is received | | | | | | fresh in a container | | | | | | labeled with the patient | | | | | | name(initials MM) and | | | | | | "base of nasopharyngeal | | | | | | papilloma." Received | | | | | | is a 1.2 x1.0 x 0.5-cm | | | | | | irregular, rubbery, | | | | | | rodriguez-white tissue with | | | | | | moderate cautery.One | | | | | | aspect is hemorrhagic, | | | | | | glistening, pale | | | | | | pink-red. The area of | | | | | | cauteryis inked. The | | | | | | specimen is trisected | | | | | | and submitted in toto. | | | | | | Cassette Index:A1, one | | | | | | trisected | | | | | | tissueJK:NG:labRendering | | | | | | Diagnostician: Bryan | | | | | | Kendall | | | | | | Toro | | | | | | errol Signed 08/07/2007 | | | | + + + + + + + + | Specimen | + + | | + + + + + + + | Performing | Address | City/State/Zipcode | Phone Number | | Organization | | | | + + + + + | [facility] DEPARTMENT OF | [address] [place] [address] | [place] [address] | | | PATHOLOGY | [address] | | | + + + + + | [facility] DEPARTMENT OF | [address] [facility] | [place] [address] | | | PATHOLOGY | [address] | | | + + + + + documented in this encounter Visit Diagnoses Not on filedocumented in this encounter
--- OUTSIDE RECORDS SUMMARY | ~2020-08-27 | XMS | Encounter Summary ---
Demographics + + + | Address | [address] | | | [place] [address] | + + + | Home Phone | | + + + | Preferred Language | Unknown | + + + | Marital Status | Single | + + + | Buddhism Affiliation | CAT | + + + | Race | White | + + + | Ethnic Group | Not or | + + + Author + + + | Author | [facility] | + + + | Organization | [facility] | + + + | Address | Unknown | + + + | Phone | Unavailable | + + + Support + + +---------+ + | Name | Relationship | Address | Phone | + + +---------+ + | Otilia & Edgar Ramirez | ECON | Unknown | | + + +---------+ + Care Team Providers + +------+ + | Care Coordinating Producer Name | Role | Phone | + +------+ + | Dacia Regalado | PCP | Unavailable | + +------+ + Reason for Visit + + + | Reason | Comments | + + + | New patient | mass in throat | | consultation | | + + + Benefits Check (Routine) +--------+--------+ + + + + | Status | Reason | Specialty | Diagnoses / | Referred By | Referred To | | | | | Procedures | Contact | Contact | +--------+--------+ + + + + | Closed | | Otolaryngolog | | Sen, | Ana | | | | y | | Jay Rene, | MD Nate | | | | | | | [address] | | | | | | [place] | [facility] | | | | | | HEAD & NECK | [address] [place], | | | | | | [address] | [place] | | | | | | [address] | [address] | | | | | | [address] | Phone: | | | | | | [place], | [phone] | | | | | | [place] [address] | Fax: | | | | | | Phone: | [phone] | | | | | | [phone] | | | | | | | Fax: | | | | | | | [phone] | | +--------+--------+ + + + + Encounter Details +--------+---------+ + + + | Date | Type | Department | Care Team | Description | +--------+---------+ + + + | 05/01/ | Office | Otolaryngology | Nate Perez, | Benign Neoplasm of | | 2006 | Visit | Head and Neck | [address] | Nasopharynx (Primary | | | | Surgery Services at | [facility] [address] | Dx) | | | | [address] | [place], [place] | | | | | [address] | [address] | | | | | Physician's | [phone] | | | | | Gerda, [facility] | | | | | | [facility] [place] | | | | | | [address] | | | | | | [phone] | | | +--------+---------+ + + + Social History + +-------+ [...] + + documented as of this encounter Last Filed Vital Signs + + + [...] + + + documented in this encounter Progress Notes Nate Perez - 05/01/2007 12:46 PM PDTMsApoorva Ramirez is a 21-year-old female who is seen in c onsultation from Dr. 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 She tells me that this papilloma was first noticed in early 2004. She had recently had her tonsils removed for chronic tonsillitis and apnea and on a follow-up examination was noted t o have a papilloma. This was removed in the office. I do not have any pathology reports on t his but her mother tells me that he was a squamous papilloma and there was some concern that it might have represented an inverting papilloma but eventually it was decided that it did not. The lesion recurred in the spring and she underwent a repeat excision of this area in December of 2005. Apparently about 3 or 4 weeks ago she noted a sensation in the back of her throat and notic ed the return of the papilloma. Aside from a sensation in the back of her throat when she swallows she has no complaints re ferable to this lesion. She has no papillomas anywhere else. Although apparently she did hav e some changes on a Pap smear which at one point were felt to represent changes consistent w ith papilloma virus but eventually was decided that this was not the case. Her past medical history is remarkable for bipolar disease. Her past surgical history is remarkable for some sort of surgery on her thymus gland in 199 1. She had her tonsils removed in January of 2005 8 D&C in July of 2005 repeat removal of the papilloma in December 2005 and 8 exploratory laparoscopy in March of 2006. She is allergic to Biaxin. Current Medications: [place] [employer] 450 mg/675 mg twice a day Celexa 20 mg/30 mg once a day. Ortho Tri-Cyclen once a day. She is a nonsmoker and nondrinker. She lives in the [place] area. Her ECoG performance st atus is zero. Review of Systems: General: No constitutional symptoms of fevers, fatigue, chills, weight loss or sweats. Eyes: No changes in vision loss, double vision, eye pain, eye irritation, discharge, blurred vision or light sensitivity. Ears, Nose and Throat: No hearing loss, ringing in the ears, ear discharge, earache, nosebleeds, nasal congestion, difficulty swallowing, hoarseness or sore throat. Respiratory: No shortness of breath, coughing up blood, excessive sputum, cough, chest discomfort or wheezing. Musculoskeletal: No joint pain, swelling, stiffness, back pain, arthritis, muscle aches, muscle cramps or loss of strength. Cardiovascular: No chest pain, skipping beats, lightheadedness, difficulty breathing upright or lying down, fatigue, near fainting or fainting, palpitations, weight gain, edema, leg cramps. Gastrointestinal: No loss of appetite, excessive appetite, indigestion, vomiting, nausea, constipation, gas, abdominal pain, hemorrhoids, diarrhea, bloating, bloody stools or dark tarry stools. Genitourinary: No urinary frequency, blood in urine, difficulty in urination, discharge, painful urination, incontinence, urinary urgency or genital sores. Neurologic: No unusual headaches, inability to speak, poor balance, numbness, tingling, tremors, memory loss, disturbances in coordination or sensation of room spinning. Skin: No itching, rash, poor wound healing, night sweats, changes in skin color, dryness, flushing or suspicious lesions. Psychological: No abnormal anxiety, depression, thoughts of suicide or hallucinations. Heme/Lymphatic: No skin discoloration, abnormal bleeding or enlarged lymph nodes. Endrocrine: No heat intolerance, cold intolerance, excessive hunger or excessive thirst. Allergic: No seasonal allergies, hives or rash, persistent infections or HIV exposure. Physical Examination: General - well developed, well nourished white female in no apparent distress. Vital signs - Blood pressure 142/75, pulse 80, height 1.651 m (5' 5"), weight 97.977 k g (216 lbs). Voice - Normal. Mental status - Alert & oriented. Face - The facial contour is normal The facial nerve function is normal bilaterally There are no suspicious lesions on the skin of the face, neck or scalp. Eyes - The vision is grossly intact bilaterally. Extraoccular movements are normal bilaterally. The lids are normal bilaterally. Ears - The tympanic membranes, pinnas and external canals are normal bilaterally Nose & Nasal cavity - The external nasal pyramid is normal. Anterior rhinoscopy is normal bilaterally. Oral cavity - There is no trismus The tongue and palatal mobility is normal Dentition: Good repair There are no mucosal lesions noted on the: hard palate, upper alveolus, lower alveolus, buccal mucosa, floor of mouth, lips or tongue There is free flow of saliva bilaterally from both Carlos Alberto's and Harlan's duct. Oropharynx - The soft palate mobility is normal. The tonsils are normal bilaterally. The pharyngeal la are normal. Just to the left side of the uvula there is a rather typical-appearing papilloma which seems to be arising from the nasopharyngeal side of the so ft palate. Cranial nerves - CN I - Smell intact by report. CN II - vision grossly intact CN III, IV & - EOMI's intact. CN V - Sensation intact in trigeminal nerve. CN VII - Facial motion normal. CN VIII - Hearing grossly intact. CN IX - Palate motion intact. CN X - Normal vocal cord motion. CN XI - Shoulder function normal. CN XII - Tongue motion normal. Flexible endoscopy - Procedure: Flexible nasopharyngoscopy Anesthesia - 4% lidocaine, 1% phenylephrine topically in nose Equipment - Flexible laryngoscope Endoscopist - Nate Perez MD Findings - Nasal cavity: No lesions seen Nasopharynx: On the nasopharyngeal side of the soft palate just to the left side of the mid line and about 1 cm up from the free edge of the soft palate there is a papilloma which is a bout one half to 2 cm long and probably about 5 mm in diameter the papillomas dangling down below the free edge of the soft palate invisible transorally. Oropharynx: Normal Larynx: No lesions within the supraglottic, glottic or subglottic larynx, normal vocal cord mobility Hypopharynx: No lesions seen Neck - There is no adenopathy palpable on either side of the neck. Thyroid gland - The thyroid gland is of normal size & consistency. There are no masses palpable. Impression: Nasopharyngeal papilloma. I do not have the pathology report so this lesion from [place] but from what Ms. ashlie Ovalles's mother is telling me it appears that the pathology is consisten t with a papilloma perhaps an inverting papilloma. What I recommended to Ms. Ramirez is that we try excising this lesion one more time for cure. Ms. Ramirez's mother asked me about something that she had heard from Dr. Chatterjee regarding spl itting the soft palate. But I do not think that this would be prudent as the possibility of wound healing problems after that are great enough that I do not think the risk is warranted by this condition. Nate Perez MD Inspector [employer] of Otolaryngology, Head & Neck Surgery NOTE: THIS NOTE WAS GENERATED USING VOICE RECOGNITION SOFTWARE. SOME ERRORS MAY EXIST DUE T O THE INHERENT NATURE OF THAT SOFTWARE. REPORTING OF SERIOUS ERRORS IS APPRECIATED. documented in this encoun ter Plan of Treatment + + +--------+ + + | Name | Type | Priori | Associated Diagnoses | Order Schedule | | | | ty | | | + + +--------+ + + | AL LARYNGOSCOPY,FLEX | Procedures | Routin | Benign Neoplasm of | Ordered: 05/01/2007 | | FIBER,DIAGNOSTIC | | e | Nasopharynx | | + + +--------+ + + documented as of this encounter Visit Diagnoses + + | Diagnosis | + + | Benign neoplasm of nasopharynx - Primary | + + documented in this encounter
--- OUTSIDE RECORDS SUMMARY | ~2020-08-27 | XMS | Encounter Summary ---
Demographics + + + | Address | [address] | | | [place] [address] | + + + | Home Phone | | + + + | Preferred Language | Unknown | + + + | Marital Status | Unknown | + + + | Bahai Affiliation | Unknown | + + + | Race | Unknown | + + + | Ethnic Group | Unknown | + + + Author + + + | Author | [facility] | | | and [place] | + + + | Organization | [facility] | | | and [place] | + + + | Address | Unknown | + + + | Phone | Unavailable | + + + Care Team Providers + +------+ + | Care Superintendent Recreation Name | Role | Phone | + +------+ + PCP | Unavailable | + +------+ + Encounter Details +--------+ + + + + | Date | Type | Department | Care Team | Description | +--------+ + + + + | 01/15/ | Emergency | [facility] | Harsha Taveras | Abdominal Pain, | | 2007 | | MEDICAL CENTER | MD Anju [address] | Unspecified Site | | | | EMERGENCY CENTER | [place], [place] | | | | | [address] [facility] | [address] | | | | | [place], [place] | [phone] | | | | | [address] | | | | | | [phone] | | | +--------+ + + + [...]
--- OUTSIDE RECORDS SUMMARY | ~2020-08-27 | XMS | Encounter Summary ---
Demographics + + + | Address | [address] | | | [place] [address] | + + + | Home Phone | | + + + | Preferred Language | Unknown | + + + | Marital Status | Single | + + + | Oriental Orthodox Affiliation | CAT | + + + | Race | White | + + + | Ethnic Group | Not or | + + + Author + + + | Author | [facility] | + + + | Organization | [facility] | + + + | Address | Unknown | + + + | Phone | Unavailable | + + + Support + + +---------+ + | Name | Relationship | Address | Phone | + + +---------+ + | Otilia & Edgar Ramirez | ECON | Unknown | | + + +---------+ + Care Team Providers + +------+ + | Care Booky Name | Role | Phone | + +------+ + PCP | Unavailable | + +------+ + Encounter Details +--------+ + + + + | Date | Type | Department | Care Team | Description | +--------+ + + + + | 11/13/ | ED Progress | [facility] | [...] as of this encounter ED Notes Interface, Dish Washer In - 08/21/2006 2:33 AM PDT [id number] JAMES SYLVIE Date of Service: 11/13/2005 I evaluated and examined this patient along with the resident. Please see their dictation. We discussed, and I agree with the medical decision making and management. Michelle Fry M.D. / [id number] / [id number] / [id number] / Electronically signed by Michelle Fry 08-20-2006 07:05:36 PM documented i n this encounter Plan of Treatment Not on filedocumented as of this encounter Visit Diagnoses Not on filedocumented in this encounter"
--- OUTSIDE RECORDS SUMMARY | ~2020-08-27 | XMS | Encounter Summary ---
Demographics + + + | Address | [address] | | | [place] [address] | + + + | Home Phone | | + + + | Preferred Language | Unknown | + + + | Marital Status | Single | + + + | Adventist Affiliation | CAT | + + + | Race | White | + + + | Ethnic Group | Not or | + + + Author + + + | Author | [facility] | + + + | Organization | [facility] | + + + | Address | Unknown | + + + | Phone | Unavailable | + + + Support + + +---------+ + | Name | Relationship | Address | Phone | + + +---------+ + | Otilia & Edgar Ramirez | ECON | Unknown | | + + +---------+ + Care Team Providers + +------+ + | Care Lining Sewer Name | Role | Phone | + +------+ + PCP | Unavailable | + +------+ + Encounter Details +--------+ + + + + | Date | Type | Department | Care Team | Description | +--------+ + + + + | 11/14/ | ED Progress | [facility] | [...] as of this encounter ED Notes Interface, Pmp In - 08/21/2006 2:33 AM PDT [id number] JAMES MERCER Date of Service: 11/14/2005 Chief Complaint: Right lower quadrant abdominal pain. History of Present Illness: Ms. Ramirez is an 20-year-old female who presented to the emergency room on November 11, 2005, with right lower quadrant abdominal pain with intermittent spotting. She was found to have a 4-cm right ovarian cyst at that time on pelvic ultrasound. She was discharged with Vicodin #20 and ibuprofen for pain. She was told to return should she have any lightheadedness, increased bleeding from her vagina, or increased abdominal pain. She states that in the last 2 days she has had some increased spotting, although not enough to fill one pad. She thinks that the abdominal pain has increased and she is now having dysuria. She also notes some lightheadedness. The pain is similar to the pain that she was having before this increase in intensity. It does not radiate, remains in the right lower quadrant. She has had no fevers or chills. No shortness of breath, chest pain, or cough. No changes in her bowel movement. Past Medical History: 1. Right ovarian cyst as above. 2. Bipolar disorder on lithium. 3. The patient has had one and one miscarriage in the past. Medications: Celexa and lithium. She has noted changes in the dosages of either of these medications. Allergies: No known drug allergies. Review of Systems: All systems negative except as described above. Social History: The patient does not smoke tobacco, drink alcohol, or use any drugs. The patient lives with her mother and does not attend school or work at this time. Family History: Noncontributory. Vital Signs: On presentation to the emergency room, the patient was afebrile with a blood pressure of 137/77, a pulse of 104, respiratory rate of 16. She was saturating 100% on room air. General: She was in no apparent distress. HEENT: No scleral icterus, moist oropharynx. Cardiovascular: Regular rate and rhythm, no murmurs. Lungs: Clear to auscultation bilaterally. Abdomen: Positive bowel sounds, nondistended. Obese. A very mild tenderness with very deep palpation in the right lower quadrant. No masses appreciated. Mild tenderness in the right upper quadrant. Extremities: Lower extremities without edema. Neurologic: No neurologic focal findings. Emergency Department Course: The patient was triaged to the Acute Side. The nurses' notes were reviewed. A differential diagnosis was concerning for worsening pain from her right ovarian cyst or possibly appendicitis given a white blood cell count of 12 on previous visit to the emergency room and increased pain. There was also some concern for urinary tract infection given her new dysuria. Laboratory Data: White blood cells 9, hematocrit 34.4 from 37 at last visit. Platelets 330. Sodium 138, potassium 3.7, chloride 104, bicarbonate 25, BUN 5, creatinine 0.6, glucose 93. Calcium is 9.2. Albumin is 3.1. Total bilirubin is 0.4, AST 14, alkaline phosphatase 60. Imaging Data: CT of the abdomen with contrast shows evidence of mesenteric adenitis in the right lower quadrant. With a mild inflammation and borderline enlarged lymph nodes in the right lower quadrant. There is no bowel thickening. The appendix cannot be seen above, per Radiology report. It is very unlikely that this patient has appendicitis. There is no free air, bowel thickening, or other concerning signs. Urine: A negative urine test, a negative urinalysis for blood or evidence of infection. The patient had a Gonococcal and Chlamydia testing done which is pending at this time. That was done during her pelvic examination during her November 11, 2005, visit to the emergency room. The patient had a lithium level drawn which is pending. Clinical Impression: Problems: Increasing abdominal pain. The patient is felt to have mesenteric adenitis, possible viral etiology. Her persistent pain could be related to this as well as her right ovarian cyst. The ovarian cyst has not changed in size on the CT scan compared to the pelvic ultrasound of November 11, 2005. The plan at this time is to continue Vicodin at night for pain which she is already given a prescription for. The patient was encouraged to use ibuprofen 800 mg 3 times daily as needed for pain for upto 1 week. She was counseled to take this only with food. She knows to return to the emergency room should she have increased bleeding from her vagina, lightheadedness, or fevers and chills. She has none of these things at this time. Her pain is under control at this time. She understands all the directions above and feels that she is ready to leave the emergency room. At this time, we will follow up her lithium level with her if it is elevated. She gave us a phone number to reach her at which was [phone]. The patient does not have a primary care physician, and therefore will follow up at the emergency room should she have the concerning symptoms mentioned above. Discharge Disposition: The patient is to be discharged to home. Discharge Condition: She is stable on discharge. Recommended Treatments: Mentioned above. Discharge Instructions: She was not given any prescriptions at this time. She is to follow up in the emergency room as described above. Bryan Zhu M.D. Michelle Fry M.D. ROGE / [place]RA [id number] / [id number] / [id number] / Electronically signed by Michelle Fry 08-20-2006 07:05:21 PM documented i n this encounter Plan of Treatment Not on filedocumented as of this encounter Visit Diagnoses Not on filedocumented in this encounter"
--- OUTSIDE RECORDS SUMMARY | ~2020-08-27 | XMS | Encounter Summary ---
Demographics + + + | Address | [address] | | | [place] [address] | + + + | Home Phone | | + + + | Preferred Language | Unknown | + + + | Marital Status | Single | + + + | Spiritism Affiliation | CAT | + + + | Race | White | + + + | Ethnic Group | Not or | + + + Author + + + | Author | [facility] | + + + | Organization | [facility] | + + + | Address | Unknown | + + + | Phone | Unavailable | + + + Support + + +---------+ + | Name | Relationship | Address | Phone | + + +---------+ + | Otilia & Edgar Ramirez | ECON | Unknown | | + + +---------+ + Care Team Providers + +------+ + | Care Data Warehouse Architect Name | Role | Phone | + +------+ + | Dacia Regalado | PCP | Unavailable | + +------+ + Encounter Details +--------+ + + + + | Date | Type | Department | Care Team | Description | +--------+ + + + + | 08/03/ | Procedure - | UNKNOWN DEPARTMENT | Record, Operation | Operative Report | | 2006 | | [address] | | | | | Transcribed | [address] | | | | | | [place], [place] | | | | | | [address] | | | +--------+ + + + [...] + + documented as of this encounter Procedure Notes Record, Operation - 08/03/2007 12:00 AM PDTAssociated Order(s): OPERATION RECORD [id number] JAMES MERCER [id number] Date: 08/03/2007 Attending Surgeon: Nate Perez M.D. Loom Starter(s): Sage Peterson M.D. Preoperative Diagnosis(es): Nasopharyngeal lesion. Postoperative Diagnosis(es): Nasopharyngeal lesion. Procedures Performed: Excision of nasopharyngeal lesion. Anesthesia: General endotracheal anesthesia. Complications: None. Specimens: Nasopharyngeal lesion. 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 This has been removed 2 prior times and has recurred each time. Prior pathology has not demonstrated any malignant changes within this papilloma. Findings: There was an approximately 1 x 1 cm area of papilloma present on the nasopharyngeal side of the soft palate. This is just to the left of the uvula. This was removed with a small cuff of normal mucosa surrounding it. Estimated Blood Loss: Less than 10 mL. Procedure: Sylvie Ramirez was brought from the preoperative area into the operative suite. She was placed supine on the operating room table. A pause was held to ensure the proper patient, surgical site, and procedure identified correctly. All bony prominences were padded adequately. General endotracheal anesthesia was instituted per the anesthesiologist. The eyes were taped shut, and the bed was rotated 90 degrees towards the Otolaryngology Service. The patient was then prepped and draped in the usual fashion. A Jasson mouthgag was placed to retract the tongue and expose the oropharynx. A stitch was placed to the uvula and used to retract the uvula, exposing the nasopharynx side of the soft palate. A 1 x 1 cm area of papillomatous change was present on the undersurface of the uvula to the left of midline. This was grasped and circumferentially dissected free from the surrounding mucosa. A small cuff of normal mucosa and underlying uvular muscle were kept with the specimen. This was passed off the table and labeled nasopharyngeal lesion. There was no significant bleeding with this procedure. Then 5 mL of 0.5% Marcaine with 1:200,000 epinephrine was infused locally. At this point, the case was terminated. The mouthgag was removed, and the bed rotated back to the Anesthesiology Service. The patient was then awakened, extubated, and brought to the Postanesthesia Care Unit in stable condition. Pursuant to federal Medicaid billing regulations, I certify that Dr. Nate Perez was present and involved in the entirety of the procedure. Sage Peterson M.D. Nate Perez M.D. / NEDRA [id number] / [id number] / [id number] / Reviewed or Edited By Sage Peterson on 08-09-2007 Electronically signed by Nate Perez 08-10-2007 07:59:17 AM documented in this encou nter Plan of Treatment Not on filedocumented as of this encounter Procedures + +--------+ + + + | Procedure Name | Priori | Date/Time | Associated Diagnosis | Comments | | | ty | | | | + +--------+ + + + | OPERATION RECORD | | 08/03/2007 | | Results for this | | | | 12:00 AM | | procedure are in the | | | | PDT | | results section. | + +--------+ + + + documented in this encounter Results OPERATION RECORD (08/03/2007 12:00 AM PDT) + + | Procedure Note | + + | 08/03/2007 12:00 AM PDT | | [id number] | | [id number] JAMES MERCER [id number] | | | | Date: 08/03/2007 | | | | Attending Surgeon: Nate Perez M.D. | | | | | | Loom Starter(s): Sage Peterson M.D. | | | | | | Preoperative Diagnosis(es): | | Nasopharyngeal lesion. | | | | Postoperative Diagnosis(es): | | Nasopharyngeal lesion. | | | | Procedures Performed: | | Excision of nasopharyngeal lesion. | | | | Anesthesia: | | General endotracheal anesthesia. | | | | Complications: | | None. | | | | Specimens: | | Nasopharyngeal lesion. | | | | Indications: | | Sylvie Ramirez is a 22-year-old female with a history of a papilloma on the | | nasopharyngeal side of the soft palate. This has been removed 2 prior | | times and has recurred each time. Prior pathology has not demonstrated any | | malignant changes within this papilloma. | | | | Findings: | | There was an approximately 1 x 1 cm area of papilloma present on the | | nasopharyngeal side of the soft palate. This is just to the left of the | | uvula. This was removed with a small cuff of normal mucosa surrounding it. | | | | | | Estimated Blood Loss: | | Less than 10 mL. | | | | Procedure: | | Sylvie Ramirez was brought from the preoperative area into the operative suite. | | She was placed supine on the operating room table. A pause was held to | | ensure the proper patient, surgical site, and procedure identified | | correctly. All bony prominences were padded adequately. General | | endotracheal anesthesia was instituted per the anesthesiologist. The eyes | | were taped shut, and the bed was rotated 90 degrees towards the | | Otolaryngology Service. The patient was then prepped and draped in the | | usual fashion. A Jasson mouthgag was placed to retract the tongue and | | expose the oropharynx. A stitch was placed to the uvula and used to | | retract the uvula, exposing the nasopharynx side of the soft palate. A 1 x | | 1 cm area of papillomatous change was present on the undersurface of the | | uvula to the left of midline. This was grasped and circumferentially | | dissected free from the surrounding mucosa. A small cuff of normal mucosa | | and underlying uvular muscle were kept with the specimen. This was passed | | off the table and labeled nasopharyngeal lesion. There was no significant | | bleeding with this procedure. Then 5 mL of 0.5% Marcaine with 1:200,000 | | epinephrine was infused locally. At this point, the case was terminated. | | The mouthgag was removed, and the bed rotated back to the Anesthesiology | | Service. The patient was then awakened, extubated, and brought to the | | Postanesthesia Care Unit in stable condition. | | | | Pursuant to federal Medicaid billing regulations, I certify that Dr. Sullivan | | Ana was present and involved in the entirety of the procedure. | | | | | | | | | | Sage Peterson M.D. | | | | | | | | Nate Perez M.D. | | | | ZS / HS | | [id number] / [id number] / [id number] / | | | | | | | | | | | | Reviewed or Edited By Sage Peterson on 08-09-2007 | | Electronically signed by Nate Perez 08-10-2007 07:59:17 AM | | | | | + + documented in this encounter Visit Diagnoses Not on filedocumented in this encounter"
--- OUTSIDE RECORDS SUMMARY | ~2020-08-27 | XMS | Encounter Summary ---
Demographics + + + | Address | [address] | | | [place] [address] | + + + | Home Phone | | + + + | Preferred Language | Unknown | + + + | Marital Status | Unknown | + + + | Buddhist Affiliation | Unknown | + + + | Race | Unknown | + + + | Ethnic Group | Unknown | + + + Author + + + | Author | [facility] | | | and [place] | + + + | Organization | [facility] | | | and [place] | + + + | Address | Unknown | + + + | Phone | Unavailable | + + + Care Team Providers + +------+ + | Care Landcare Officer Name | Role | Phone | + +------+ + PCP | Unavailable | + +------+ + Encounter Details +--------+ + + + + | Date | Type | Department | Care Team | Description | +--------+ + + + + | 04/19/ | Hospital | [facility] | | | | 2005 | Encounter | [facility] | | | | | | [address] | | | | | | [place] | | | | | | [address] | | | | | | [phone] | | | +--------+ + + + [...]
--- OUTSIDE RECORDS SUMMARY | ~2020-08-27 | XMS | Encounter Summary ---
Demographics + + + | Address | [address] | | | [place] [address] | + + + | Home Phone | | + + + | Preferred Language | Unknown | + + + | Marital Status | Single | + + + | Latter-Day Affiliation | CAT | + + + | Race | White | + + + | Ethnic Group | Not or | + + + Author + + + | Author | [facility] | + + + | Organization | [facility] | + + + | Address | Unknown | + + + | Phone | Unavailable | + + + Support + + +---------+ + | Name | Relationship | Address | Phone | + + +---------+ + | Otilia & Edgar Ramirez | ECON | Unknown | | + + +---------+ + Care Team Providers + +------+ + | Care Art Director Name | Role | Phone | + +------+ + | Dacia Regalado | PCP | Unavailable | + +------+ + Encounter Details +--------+ + + + + | Date | Type | Department | Care Team | Description | +--------+ + + + + | 08/03/ | Med | AMBULATORY SURGERY | Nate Perez, | | | 2006 | Reconciliat | [address] | [address] | | | | ion | [address] | [address] | | | | | [place] | [place], [place] | | | | | [address] [place], [place] | [address] | | | | | [address] | [phone] | | | | | | | [...]
[~2020-08-27 08:41] MED LIST changes: +G TUSSIN AC LI473 ML PO
--- OUTSIDE RECORDS SUMMARY | 2020-08-27 08:44 | XMS ---
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 E.D. VISIT COUNT (12 MO.) [address] [place] [address] TOTAL 1 NOTE: Visits indicate total known visits. ED/UCC VISIT TRACKING (12 MO.) 08/27/2020 08:[address] [facility] [place] TYPE: Emergency COMPLAINT: - PAIN RIGHT SIDE, URINE PAIN INPATIENT VISIT TRACKING (12 MO.) No inpatient visits to display in this time frame [email or web address]
[2020-08-27] MEDS ORDERED: ONDANSETRON ODT8 MG PO (13:38)
[2020-08-27] MEDS ORDERED: NORCO 5-325 TA1 EACH PO (13:38)
[2020-08-27] MEDS ORDERED: KEFLEX500 MG PO (13:38)
== END 2020-08-27 14:10 | disposition home or self-care (01) ==
LOC: ED 08:41
DX: N12 Tubulo-interstitial nephritis, not specified as acute or chronic (principal); K21.9 Gastro-esophageal reflux disease without esophagitis; F32.9 Major depressive disorder, single episode, unspecified; F41.9 Anxiety disorder, unspecified; Z87.891 Personal history of nicotine dependence; Z88.0 Allergy status to penicillin; Z88.8 Allergy status to other drugs, medicaments and biological substances; Z88.1 Allergy status to other antibiotic agents; Z79.899 Other long term (current) drug therapy
CPT/HCPCS: 74177; 80053; 81001; 84703; 85025; 96361; 99284-25; J0696; J1170; J1885; J2405; J7030; Q9967

== ENCOUNTER 2020-09-23 19:39 | Emergency (ER) | payer OTHER ==
[~2020-09-23] VITALS: Ht 167.6 cm; Wt 136.1 kg
[~2020-09-23 19:39] MED LIST changes: +KEFLEX500 MG PO; +NORCO 5-325 TA1 EACH PO; +ONDANSETRON ODT8 MG PO
--- OUTSIDE RECORDS SUMMARY | 2020-09-23 19:42 | XMS ---
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 ED/UCC VISIT TRACKING (12 MO.) 09/23/2020 19:40 [facility] [place] TYPE: Emergency COMPLAINT: - NAUSEA/VOMITTING 08/27/2020 08:42 [facility] [place] TYPE: Emergency COMPLAINT: - PAIN RIGHT SIDE, URINE PAIN DIAGNOSES: - Tubulo-interstitial nephritis, not specified as acute or chronic - Allergy status to other drugs, medicaments and biological substances - Other snf (current) drug therapy - Major depressive disorder, single episode, unspecified - Anxiety disorder, unspecified - Gastro-esophageal reflux disease without esophagitis - Allergy status to other antibiotic agents - Allergy status to penicillin - Unspecified abdominal pain - Personal history of nicotine dependence INPATIENT VISIT TRACKING (12 MO.) No inpatient visits to display in this time frame [email or web address]
[2020-09-23] MEDS ORDERED: AMITRIPTYLINE H50 MG PO (20:05)
[2020-09-23] MEDS ORDERED: KEFLEX500 MG PO (23:22)
== END 2020-09-23 23:41 | disposition home or self-care (01) ==
LOC: ED 19:39
DX: N39.0 Urinary tract infection, site not specified (principal); R11.2 Nausea with vomiting, unspecified; R19.7 Diarrhea, unspecified; F32.9 Major depressive disorder, single episode, unspecified; F41.9 Anxiety disorder, unspecified; K21.9 Gastro-esophageal reflux disease without esophagitis; Z88.0 Allergy status to penicillin; Z88.8 Allergy status to other drugs, medicaments and biological substances; Z88.1 Allergy status to other antibiotic agents; Z79.899 Other long term (current) drug therapy
CPT/HCPCS: 80053; 81001; 83605; 83690; 84703; 85025; 96365; 96375; 99284-25; J0696; J2405; J7030

== ENCOUNTER 2023-11-05 14:27 | Emergency (ER) | payer OTHER ==
[~2023-11-05] VITALS: Ht 167.6 cm; Wt 154.6 kg
[~2023-11-05 14:27] MED LIST changes: +AMITRIPTYLINE H50 MG PO; +CEPHALEXIN500 M1 PO
--- OUTSIDE RECORDS SUMMARY | 2023-11-05 14:34 | XMS ---
PreManage Notification: SYLVIE RAMIREZ Security Non Destructive Testing Specialist Events No recent Security Events currently on file CRITERIA MET - Group Notification CARE PROVIDERS There are no care providers on record at this time. Care Guidelines exist for the following facilities: [facility] ( 03/05/2019 ) [facility] NOTE: Visits indicate total known visits. ED/UCC VISIT TRACKING (12 MO.) 11/05/2023 14:27 [facility] [place] TYPE: Emergency COMPLAINT: - FLANK PAIN INPATIENT VISIT TRACKING (12 MO.) No inpatient visits to display in this time frame [email or web address]
[2023-11-05] MEDS ORDERED: HYDROXYZINE HCL25 MG PO (16:20)
[2023-11-05] MEDS ORDERED: OMEPRAZOLE20 MG PO (16:20)
[2023-11-05] MEDS ORDERED: PRAZOSIN HCL5 MG PO (16:20)
[2023-11-05] MEDS ORDERED: ONDANSETRON ODT4 MG PO (16:21)
[2023-11-05] MEDS ORDERED: LORATADINE10 MG PO (16:21)
[2023-11-05] MEDS ORDERED: AJOVY AUTO225 MG/1.5 SQ (16:22)
[2023-11-05 16:58] LABS: BILIRUBIN, URINE NEGATIVE (negative); BLOOD/HGB, URINE MODERATE (Negative); KETONE, URINE NEGATIVE (Negative); LEUK ESTERASE, URINE MODERATE (negative); NITRITE, URINE POSITIVE (negative)
[2023-11-05 17:00] LABS: HEMATOCRIT 40.1 % (35.0-50.0)
[2023-11-05 17:02] LABS: BASOPHILS 0.7 % (0-2); EOSINOPHILS 0.8 % (0-6); HEMOGLOBIN 13.4 g/dL (12.0-18.0); LYMPHOCYTES 17.5 % (24-44); MCH 28.4 (27-36); MCHC 33.4 g/dl (30-36); MCV 84.9 fl (81-99); PLATELET COUNT 289 K/uL (140-440); RBC 4.72 M/ul (4.3-5.7); RDW 13.6 (10.5-15.0)
[2023-11-05 17:08] LABS: BACTERIA, URINE 3+ /hpf (negative); CASTS, URINE NONE SEEN \\lpf; CRYSTALS, URINE NONE SEEN (0-1+); EPITHELIAL CELLS, URINE SQUAMOUS 2+ /lpf (0-1+); WHITE BLOOD CELLS, URINE 21-40 /HPF (0-5)
[2023-11-05 17:09] LABS: COLLECTION TYPE, URINE CLEAN CATCH; REFLEX CULTURE, URINE No (No)
[2023-11-05 17:14] LABS: ALBUMIN 3.6 g/dL (3.4-5.0); ANION GAP 11.6 (7-21); BILIRUBIN, TOTAL 0.5 ng/dL (0.2-1.0); BUN/CREATININE RATIO 6.54 (6.0-28.6); CALCIUM 8.6 mg/dL (8.5-10.1); CREATININE, SERUM 1.07 mg/dL (0.55-1.02); POTASSIUM 3.6 mmol/L (3.5-5.1); PROTEIN, TOTAL 7.2 g/dL (6.4-8.2)
[2023-11-05] MEDS ORDERED: ONDANSETRON ODT8 MG PO (19:06)
[2023-11-05] MEDS ORDERED: CEPHALEXIN500 M1 PO (19:06)
[2023-11-05 20:05] VITALS: BP 115/83
== END 2023-11-05 20:05 | disposition home or self-care (01) ==
LOC: ED 14:27
PROVIDERS: Emergency Medicine
DX: N39.0 Urinary tract infection, site not specified (principal); K21.9 Gastro-esophageal reflux disease without esophagitis; F41.9 Anxiety disorder, unspecified; F32.A Depression, unspecified; Z88.0 Allergy status to penicillin; Z88.1 Allergy status to other antibiotic agents; Z88.8 Allergy status to other drugs, medicaments and biological substances; Z79.899 Other long term (current) drug therapy; Z87.442 Personal history of urinary calculi
CPT/HCPCS: 36415; 80053; 81001; 85025; 96365; 96375; 99284-25; A9270; J0696; J1885; J2405

== ENCOUNTER 2024-09-24 22:11 | Emergency (ER) | payer OTHER ==
[~2024-09-24] VITALS: Ht 167.6 cm; Wt 154.0 kg
[~2024-09-24 22:11] MED LIST changes: +AJOVY AUTO225 MG/1.5 SQ; +HYDROXYZINE HCL25 MG PO; +LORATADINE10 MG PO; +OMEPRAZOLE20 MG PO; +ONDANSETRON ODT4 MG PO; +PRAZOSIN HCL5 MG PO
--- OUTSIDE RECORDS SUMMARY | 2024-09-24 22:18 | XMS ---
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 Care Guidelines exist for the following facilities: [facility] [place] ( 03/05/2019 ) Oli VISIT COUNT (12 MO.) [address] [facility] TOTAL 2 NOTE: Visits indicate total known visits. 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
[2024-09-24] MEDS ORDERED: KETOROLAC TROMETHAMINE 60 MG/2 ML VIAL IM ONE (23:45)
[2024-09-25] MEDS ORDERED: LACTULOSE10 GM/15 M PO (01:12)
[2024-09-25] MEDS ORDERED: BISACODYL10 MG PR (01:12)
[2024-09-25] MEDS ORDERED: FLEET ENEMA EX230 ML PR (01:12)
[2024-09-25] MEDS ORDERED: LACTULOSE 20 GM/30 ML CUP PO ONE (01:15)
[2024-09-25] MEDS ORDERED: MAGNESIUM CITRATE 300 ML BTL PO ONE (01:15)
[2024-09-25 01:39] VITALS: BP 128/69
== END 2024-09-25 01:40 | disposition home or self-care (01) ==
LOC: ED 22:11
DX: K59.00 Constipation, unspecified (principal); K21.9 Gastro-esophageal reflux disease without esophagitis; Z88.0 Allergy status to penicillin; Z88.1 Allergy status to other antibiotic agents; Z88.8 Allergy status to other drugs, medicaments and biological substances; Z79.899 Other long term (current) drug therapy
CPT/HCPCS: 36415; 74018; 84703; 96372; 99284; J1885

== ENCOUNTER 2025-01-29 11:16 | Emergency (ER) | payer OTHER ==
[~2025-01-29] VITALS: Ht 167.6 cm; Wt 162.7 kg
[~2025-01-29 11:16] MED LIST changes: +BISACODYL10 MG PR; +FLEET ENEMA EX230 ML PR; +LACTULOSE10 GM/15 M PO
--- OUTSIDE RECORDS SUMMARY | 2025-01-29 11:27 | XMS ---
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 ED/UCC VISIT TRACKING (12 MO.) 01/29/2025 11:16 [facility] [place] TYPE: Emergency COMPLAINT: - VAGINAL BLEEDING 09/24/2024 22:12 [facility] [place] TYPE: Emergency COMPLAINT: - CONSTIPATION DIAGNOSES: - Allergy status to other antibiotic agents - Allergy status to other drugs, medicaments and biological substances - Allergy status to penicillin - Constipation, unspecified - Gastro-esophageal reflux disease without esophagitis - Other long term care social worker (current) drug therapy INPATIENT VISIT TRACKING (12 MO.) No inpatient visits to display in this time frame [id number]
[2025-01-29 11:50] LABS: BASOPHILS 0.6 % (0-2); EOSINOPHILS 1.7 % (0-6); HEMOGLOBIN 9.5 g/dL (12.0-18.0); LYMPHOCYTES 20.8 % (24-44); MCH 27.9 (27-36); MCV 82.1 fl (81-99); MONOCYTES 5.3 % (0-12); NEUTROPHILS 71.6 % (39-80); PLATELET COUNT 323 K/uL (140-440); RBC 3.41 M/ul (4.3-5.7); RDW 14.9 (10.5-15.0)
[2025-01-29 12:02] LABS: ALBUMIN 3.5 g/dL (3.4-5.0); ALBUMIN/GLOBULIN RATIO 1.13 (1.1-2.4); BILIRUBIN, TOTAL 0.3 mg/dL (0.2-1.0); BUN/CREATININE RATIO 8.87 (6.0-28.6); CALCIUM 8.4 mg/dL (8.5-10.1); CREATININE, SERUM 1.24 mg/dL (0.55-1.02); PROTEIN, TOTAL 6.6 g/dL (6.4-8.2)
[2025-01-29 12:30] LABS: ABO O; ANTIBODY SCREEN NEGATIVE; RH NEGATIVE
[2025-01-29 13:42] LABS: BASOPHILS 0.4 % (0-2); EOSINOPHILS 1.6 % (0-6); HEMOGLOBIN 9.2 g/dL (12.0-18.0); LYMPHOCYTES 19.4 % (24-44); MCH 27.9 (27-36); MCV 82.1 fl (81-99); MONOCYTES 4.8 % (0-12); NEUTROPHILS 73.8 % (39-80); PLATELET COUNT 325 K/uL (140-440); RBC 3.28 M/ul (4.3-5.7); RDW 15.3 (10.5-15.0)
[2025-01-29] MEDS ORDERED: ONDANSETRON ODT8 MG PO (14:03)
[2025-01-29] MEDS ORDERED: PROVERA10 MG PO (14:03)
[2025-01-29 14:11] VITALS: BP 117/71
== END 2025-01-29 14:14 | disposition home or self-care (01) ==
LOC: ED 11:16
PROVIDERS: Emergency Medicine
DX: N93.8 Other specified abnormal uterine and vaginal bleeding (principal); K21.9 Gastro-esophageal reflux disease without esophagitis; F43.10 Post-traumatic stress disorder, unspecified; Z79.899 Other long term (current) drug therapy; Z88.0 Allergy status to penicillin; Z88.1 Allergy status to other antibiotic agents; Z88.8 Allergy status to other drugs, medicaments and biological substances
CPT/HCPCS: 36415; 80053; 84703; 85025; 86850; 86900; 86901; 99284